=== PATIENT | male | born 1970 | race Caucasian/White ===

== ENCOUNTER → 2019-08-16 | Outpatient (CLI) | payer OTHER ==
--- NOTE | 2019-08-16 13:44 | CARD ---
MR#: [id number] Date of Study: 08/16/2019 Ordering Physician: LEONARD DAVENPORT, Referring Physician: Cristy TORREZ: Neli Brock APPROVED REPORT EXAM: Two-dimensional and M-mode echocardiogram with Doppler and color Doppler. Other Information Quality : AverageHR: 63bpm INDICATION Fatigue 2D DIMENSIONS RVDd3.5 (2.9-3.5cm)Left Atrium(2D)4.3 (1.6-4.0cm) IVSd1.0 (0.7-1.1cm)Aortic Root(2D)2.6 (2.0-3.7cm) LVDd4.3 (3.9-5.9cm)LVOT Diameter2.2 (1.8-2.4cm) PWd1.2 (0.7-1.1cm)LVDs2.3 (2.5-4.0cm) FS (%) 46.8 %SV66.7 ml LVEF(%)78.4 (>50%) Aortic Valve AoV Peak Mike.150.9cm/sAoV VTI29.6cm AO Peak GR.9.1mmHgLVOT Peak Mike.156.4cm/s LVOT VTI 28.27cmAO Mean GR.6mmHg ABHIJEET (VMAX)4.70bi4EIW (VTI)3.69cm2 Mitral Valve MV E Sbngevfu62.6cm/sMV DECEL [id number] MV A Thdunxga59.0cm/sMV [id number] E/A Ratio1.3MVA (PHT)2.73cm2 TDI E/Lateral E'11.5E/Medial E'12.7 Pulmonary Valve PV Peak Dtotlmjx910.5cm/sPV Peak Grad.7mmHg Tricuspid Valve RAP [id number] LEFT VENTRICLE The left ventricle is normal size. There is mild posterior left ventricular hypertrophy. The left kayden tricular systolic function is normal. The Ejection Fraction is 60-65%. There is normal LV segmental w all motion. Transmitral Doppler flow pattern is Grade II-pseudonormal filling dynamics. RIGHT VENTRICLE The right ventricle is normal size. The right ventricular systolic function is normal. ATRIA The left atrium is mildly dilated. The right atrium size is normal. The interatrial septum is intact with no evidence for an atrial septal defect or patent foramen ovale as noted on 2-D or Doppler imagi ng. AORTIC VALVE The aortic valve is thickened but opens well. Doppler and Color Flow revealed no significant aortic r egurgitation. There is no significant aortic valvular stenosis. MITRAL VALVE The mitral valve is mildly thickened. There is no evidence of mitral valve prolapse. There is no mitr al valve stenosis. Doppler and Color-flow revealed trace mitral regurgitation. TRICUSPID VALVE The tricuspid valve is normal in structure and function. Doppler and Color Flow revealed trace tricus pid regurgitation. There is no tricuspid valve stenosis. PULMONIC VALVE The pulmonic valve is not well visualized. Doppler and Color Flow revealed no pulmonic valvular regur gitation. GREAT VESSELS The aortic root is normal in size. The ascending aorta is normal in size. The IVC is normal in size a nd collapses >50% with inspiration. PERICARDIAL EFFUSION There is no pleural effusion. There is no evidence of significant pericardial effusion. Critical Notification Critical Value: No <Conclusion> The left ventricular systolic function is normal. The Ejection Fraction is 60-65%. There is normal LV segmental wall motion. Trace mitral regurgitation. Trace tricuspid regurgitation. There is no evidence of significant pericardial effusion. Signed by : Noah Arrington, Electronically Approved : 08/16/2019 13:43:26
== END | disposition home or self-care (01) ==
LOC: ECHO 12:44
PROVIDERS: ATTEND Family Medicine
DX: I51.7 Cardiomegaly (principal); R53.83 Other fatigue
CPT/HCPCS: 93306